=== PATIENT | female | born 1945 | race Caucasian/White ===

== ENCOUNTER 2018-03-28 19:27 | Inpatient (IN) | payer MEDICARE, BC ==
[2018-03-28] MEDS ORDERED: HYDROMORPHONE HCL INJ/PF 2 MG/ML AMPULE IV ONE ×2 (19:58→23:00)
--- NOTE | 2018-03-28 19:59 | ER Document Report ---
ED Fall - General Chief Complaint: Fall Stated Complaint: FALL/LEG PAIN Time Seen by Provider: 03/28/18 19:34 Mode of Arrival: Medic Information source: Patient, Relative Notes: Patient is a 72-year-old female with a history of GERD, hypothyroidism and high cholesterol who presents to the ER today after a fall leaving her rental home and walking down the steps. Patient states that it was slippery as it has been raining all day and she slipped, did a split and hit her right leg on a brick step. Patient comes in with pain to the right femur. No lacerations or open wounds. She did not hit her head or lose consciousness. She denies any pain anywhere else. She denies any numbness or tingling. TRAVEL OUTSIDE OF THE [place] IN LAST 30 DAYS: No - Related data Allergies/Adverse Reactions: No Known Allergies Allergy (Verified 03/29/18 09:28) Past Medical History - General Information source: Patient - Social History Smoking Status: Never Smoker Family History: Reviewed & Not Pertinent - Past Medical History Cardiac Medical History: Denies: Hx Coronary Artery Disease, Hx Heart Attack, Hx Hypertension Pulmonary Medical History: Denies: Hx Asthma, Hx Bronchitis, Hx COPD, Hx Pneumonia Neurological Medical History: Denies: Hx Cerebrovascular Accident, Hx Seizures Musculoskeltal Medical History: Reports Hx Arthritis - Hands Past Surgical History: Denies: Hx Hysterectomy - Immunizations Hx Diphtheria, Pertussis, Tetanus Vaccination: No Review of Systems - Review of Systems Constitutional: No symptoms reported EENT: No symptoms reported Cardiovascular: No symptoms reported Respiratory: No symptoms reported Gastrointestinal: No symptoms reported Genitourinary: No symptoms reported Female Genitourinary: No symptoms reported Musculoskeletal: See HPI Skin: No symptoms reported Hematologic/Lymphatic: No symptoms reported Neurological/Psychological: No symptoms reported Physical Exam - Vital signs Vitals: Pulse Ox 99 03/28/18 20:06 - Notes Notes: PHYSICAL EXAMINATION: GENERAL: Obviously in pain, not moving right leg, otherwise in no acute distress. HEAD: Atraumatic, normocephalic. EYES: Pupils equal round and reactive to light, extraocular movements intact, sclera anicteric, conjunctiva are normal. NECK: Normal range of motion, supple without lymphadenopathy LUNGS: CTAB and equal. No wheezes rales or rhonchi. HEART: Regular rate and rhythm without murmurs EXTREMITIES: Not wanting to move right leg, tender to distal femur, good pulses distally, normal sensation distally, no pitting edema. No cyanosis. NEUROLOGICAL: Cranial nerves grossly intact. Normal sensory/motor exams. PSYCH: Normal mood, normal affect. SKIN: Warm, Dry, normal turgor, no rashes or lesions noted Course - Re-evaluation Re-evalutation: 03/28/18 21:45 Patient has a comminuted fracture of the distal femur on x-ray. Hip and pelvis , right knee all normal. Dr. Zaman accepts admission at this time for comminuted distal femur fracture. Preop workup started, patient doing well with pain medication at this time. Vitals are all stable. 03/28/18 21:59 - Vital Signs Vital signs: Temp Pulse Resp BP Pulse Ox 97.8 F 63 18 127/57 H 96 03/29/18 19:44 03/29/18 19:44 03/29/18 19:44 03/29/18 19:44 03/29/18 19:44 - Laboratory Result Diagrams: 03/29/18 04:12 03/29/18 04:12 Laboratory results interpreted by me: 03/28/18 21:50 Urine Protein 30 H Urine Blood LARGE H Discharge - Discharge Clinical Impression: Femoral distal fracture Qualifiers: Encounter type: initial encounter Fracture type: closed Fracture morphology: unspecified fracture morphology Laterality: right Qualified Code(s): S72.401A - Unspecified fracture of lower end of right femur, initial encounter for closed fracture Condition: Stable Disposition: ADMITTED INPATIENT Admitting Provider: Junie Unit Admitted: Surgical Floor
[2018-03-28] MEDS ORDERED: ONDANSETRON HCL INJ/PF 4 MG/2 ML SDV IV ONE (20:13)
[2018-03-28] MEDS ORDERED: METOCLOPRAMIDE HCL INJ/PF 10 MG/2 ML SDV IV ONE (20:50)
[2018-03-28] MEDS ORDERED: NORMAL SALINE 1000 ML 1,000 ML IV PRN (21:06)
--- NOTE | 2018-03-28 21:18 | RADIOLOGY REPORT (SQ) ---
EXAM DESCRIPTION: FEMUR RIGHT COMPLETED DATE/TIME: 03/28/2018 8:53 pm REASON FOR STUDY: fall, pain COMPARISON: None. NUMBER OF VIEWS: Two views. TECHNIQUE: Two radiographic images acquired of the right femur to include hip and knee in at least o ne projection. LIMITATIONS: None. FINDINGS: MINERALIZATION: Normal. BONES: Comminuted fracture of the distal femoral diaphysis. No intra-articular extension. SOFT TISSUES: No obvious swelling or foreign body. OTHER: No other significant finding. IMPRESSION: Comminuted fracture of the distal femur. TECHNICAL DOCUMENTATION: JOB ID: [id number] [email or web address]- All Rights Reserved Reading location - IP/workstation name: [email or web address]
--- NOTE | 2018-03-28 21:18 | RADIOLOGY REPORT (SQ) ---
EXAM DESCRIPTION: HIP RIGHT AP/LATERAL COMPLETED DATE/TIME: 03/28/2018 8:53 pm REASON FOR STUDY: fall, pain COMPARISON: None. NUMBER OF VIEWS: Two views. TECHNIQUE: AP pelvis and additional frog-leg view of the right hip. LIMITATIONS: None. FINDINGS: MINERALIZATION: Normal. RIGHT HIP: No fracture or dislocation. No worrisome bone lesions. LEFT HIP: No fracture or dislocation. No worrisome bone lesions. PUBIS AND ISCHIUM: No fracture. PELVIS: No fracture. SACRUM: No fracture or dislocation. No worrisome bone lesions. LOWER LUMBAR SPINE: No fracture or dislocation. No worrisome bone lesions. No significant disc disea se. SOFT TISSUES: No findings. OTHER: No other significant finding. IMPRESSION: NEGATIVE STUDY OF THE RIGHT HIP. NO RADIOGRAPHIC EVIDENCE OF ACUTE INJURY. TECHNICAL DOCUMENTATION: JOB ID: [id number] [employer]- All Rights Reserved Reading location - IP/workstation name: [email or web address]
[2018-03-28] MEDS ORDERED: FENTANYL CITRATE INJ/PF 100 MCG/2 ML AMPUL IV ONE ×2 (21:19→23:00)
--- NOTE | 2018-03-28 21:19 | RADIOLOGY REPORT (SQ) ---
EXAM DESCRIPTION: KNEE RIGHT 2 VIEWS COMPLETED DATE/TIME: 03/28/2018 8:53 pm REASON FOR STUDY: fall, pain COMPARISON: None. NUMBER OF VIEWS: Two views. TECHNIQUE: AP and lateral radiographic images acquired of the right knee. LIMITATIONS: None. FINDINGS: MINERALIZATION: Normal. BONES: Comminuted fracture of the distal femur. No intra-articular extension. JOINT: No effusion. SOFT TISSUES: No soft tissue swelling. No radio-opaque foreign body. OTHER: No other significant finding. IMPRESSION: Comminuted fracture of the distal femur. TECHNICAL DOCUMENTATION: JOB ID: [id number] [employer]- All Rights Reserved Reading location - IP/workstation name: [email or web address]
--- NOTE | 2018-03-28 22:05 | RADIOLOGY REPORT (SQ) ---
EXAM DESCRIPTION: CHEST SINGLE VIEW COMPLETED DATE/TIME: 03/28/2018 9:31 pm REASON FOR STUDY: pre-op COMPARISON: None. EXAM PARAMETERS: NUMBER OF VIEWS: One view. TECHNIQUE: Single frontal radiographic view of the chest acquired. RADIATION DOSE: NA LIMITATIONS: None. FINDINGS: LUNGS AND PLEURA: No opacities, masses or pneumothorax. No pleural effusion. MEDIASTINUM AND HILAR STRUCTURES: No masses. Contour normal. HEART AND VASCULAR STRUCTURES: Heart normal in size. Normal vasculature. BONES: No acute findings. HARDWARE: None in the chest. OTHER: No other significant finding. IMPRESSION: NO ACUTE RADIOGRAPHIC FINDING IN THE CHEST. TECHNICAL DOCUMENTATION: JOB ID: [id number] [employer]- All Rights Reserved Reading location - IP/workstation name: [email or web address]
[2018-03-28 22:22] LABS: ABSOLUTE BASOPHILS # (AUTO) 0.1 10^3/uL (0.0-0.2); ABSOLUTE EOSINOPHILS # (AUTO) 0.1 10^3/uL (0.0-0.6); ABSOLUTE LYMPHOCYTES (AUTO) 1.4 10^3/uL (0.5-4.7); ABSOLUTE MONOCYTES (AUTO) 0.6 10^3/uL (0.1-1.4); ABSOLUTE NEUT (AUTO) 11.1 10^3/uL (1.7-8.2); BASOPHILS % (AUTO) 0.6 % (0-2); EOSINOPHILS % (AUTO) 0.5 % (0-6); HEMOGLOBIN 12.1 g/dL (12.0-15.5); LYMPHOCYTES % (AUTO) 10.7 % (13-45); MEAN CORPUSCULAR HEMOGLOBIN 29.5 pg (27.0-33.4); MEAN CORPUSCULAR HGB CONC 33.6 g/dL (32.0-36.0); MEAN CORPUSCULAR VOLUME 88 fl (80-97); MONOCYTES % (AUTO) 4.6 % (3-13); PLATELET COUNT 194 10^3/uL (150-450); RED CELL DISTRIBUTION WIDTH 13.5 % (11.5-14.0); SEGMENTED NEUTROPHILS % (AUTO) 83.6 % (42-78); TOTAL CELLS COUNTED % (AUTO) 100 %; WHITE BLOOD COUNT 13.3 10^3/uL (4.0-10.5)
[2018-03-28 22:27] LABS: AMORPHOUS SEDIMENT,URINE TRACE /HPF; APPEARANCE,URINE CLOUDY; BILIRUBIN,URINE NEGATIVE (NEGATIVE); COLOR,URINE YELLOW; GLUCOSE, URINE NEGATIVE (NEGATIVE); KETONES,URINE NEGATIVE (NEGATIVE); LEUKOCYTE ESTERASE,URINE NEGATIVE (NEGATIVE); NITRITE,URINE NEGATIVE (NEGATIVE); PROTEIN,URINE 30 mg/dL (NEGATIVE); URINE SPECIFIC GRAVITY 1.017; UROBILINOGEN,URINE NEGATIVE mg/dL (<2.0)
[2018-03-28 22:47] LABS: ALANINE AMINOTRANSFERASE 28 U/L (9-52); ALBUMIN 4.2 g/dL (3.5-5.0); ALKALINE PHOSPHATASE 51 U/L (38-126); ANION GAP 10 (5-19); ASPARTATE AMINO TRANSFERASE 24 U/L (14-36); BILIRUBIN,DIRECT 0.2 mg/dL (0.0-0.4); BILIRUBIN,TOTAL 0.3 mg/dL (0.2-1.3); BLOOD UREA NITROGEN 18 mg/dL (7-20); CALCIUM 9.9 mg/dL (8.4-10.2); CARBON DIOXIDE 28 mmol/L (22-30); CHLORIDE 102 mmol/L (98-107); GLUCOSE 159 mg/dL (75-110); POTASSIUM 3.7 mmol/L (3.6-5.0); SODIUM 140.1 mmol/L (137-145); TOTAL PROTEIN 6.8 g/dL (6.3-8.2)
--- NOTE | 2018-03-28 23:38 | EKG REPORT ---
SEVERITY:- NORMAL ECG - SINUS RHYTHM : Confirmed by: Gregory Rahman 28-Mar-2018 23:37:34
[2018-03-29] MEDS ORDERED: OXYCODONE-ACETAMINOPHEN 5-325 MG TABLET PO PRN ×3 (00:41→17:18)
[2018-03-29] MEDS ORDERED: RINGERS SOLUTION,LACTATED 1,000 ML IV PRN ×2 (00:42→18:56)
[2018-03-29] MEDS ORDERED: MORPHINE SULFATE 10 MG/ML INJ IV PRN ×2 (01:45→17:18)
[2018-03-29] MEDS: OXYCODONE-ACETAMINOPHEN 5-325 MG TABLET PO PRN ×3 (02:00→12:38)
[2018-03-29] MEDS ORDERED: VITAMIN D PO SCH (02:00)
[2018-03-29 05:14] LABS: ABSOLUTE LYMPHOCYTES (AUTO) 0.5 10^3/uL (0.5-4.7); ABSOLUTE MONOCYTES (AUTO) 0.5 10^3/uL (0.1-1.4); ABSOLUTE NEUT (AUTO) 8.8 10^3/uL (1.7-8.2); BASOPHILS % (AUTO) 0.5 % (0-2); HEMATOCRIT 34.6 % (36.0-47.0); HEMOGLOBIN 11.8 g/dL (12.0-15.5); LYMPHOCYTES % (AUTO) 5.4 % (13-45); MEAN CORPUSCULAR HEMOGLOBIN 29.6 pg (27.0-33.4); MEAN CORPUSCULAR HGB CONC 34.1 g/dL (32.0-36.0); MEAN CORPUSCULAR VOLUME 87 fl (80-97); MONOCYTES % (AUTO) 4.8 % (3-13); RED BLOOD COUNT 3.98 10^6/uL (3.72-5.28); RED CELL DISTRIBUTION WIDTH 13.4 % (11.5-14.0); SEGMENTED NEUTROPHILS % (AUTO) 89.3 % (42-78); TOTAL CELLS COUNTED % (AUTO) 100 %; WHITE BLOOD COUNT 9.9 10^3/uL (4.0-10.5)
[2018-03-29 05:22] LABS: ANION GAP 10 (5-19); BLOOD UREA NITROGEN 20 mg/dL (7-20); CALCIUM 9.4 mg/dL (8.4-10.2); CARBON DIOXIDE 27 mmol/L (22-30); CHLORIDE 103 mmol/L (98-107); GLUCOSE 144 mg/dL (75-110); INTERNATIONAL RATION (INR) 0.89; POTASSIUM 4.3 mmol/L (3.6-5.0); PROTHROMBIN TIME 12.5 SEC (11.4-15.4)
[2018-03-29 05:42] LABS: PLATELET COUNT 133 10^3/uL (150-450)
[2018-03-29] MEDS: MULTIVITAMIN TABLET PO SCH (08:55)
[2018-03-29] MEDS: LANSOPRAZOLE 30 MG TAB.RAP.DR PO SCH (08:55)
[2018-03-29] MEDS ORDERED: LEVOTHYROXINE SODIUM 0.088 MG TABLET PO SCH (10:00)
--- NOTE | 2018-03-29 10:18 | EKG REPORT ---
SEVERITY:- NORMAL ECG - SINUS RHYTHM : Confirmed by: Gregory Rahman 29-Mar-2018 10:18:07
[2018-03-29] MEDS ORDERED: LEVOTHYROXINE SODIUM 0.075 MG TABLET PO ONE (12:00)
--- NOTE | 2018-03-29 13:02 | PDOC H&P ---
History of Present Illness Admission Date/PCP: 03/28/18 21:51 GITA BHATT MD Patient complains of: Right leg pain and deformity History of Present Illness: JEANNINE ROSADO is a 72 year old female known to our service for previous orthopedic complaints. Yesterday patient was [facility] home when she tripped and fell and twisted and injured her right lower extremity. Medially had deformity pain and swelling and inability to weight-bear. Patient was brought to the [facility] ER where upon evaluation was shown to have a distal third displaced femoral shaft fracture. Denies any numbness or tingling or paresthesias. Denies any loss of consciousness denies any other extremity injury. Complains of sharp acute pain right above her right knee. Past Medical History Cardiac Medical History: Denies: Coronary Artery Disease, Myocardial Infarction, Hypertension Pulmonary Medical History: Denies: Asthma, Bronchitis, Chronic Obstructive Pulmonary Disease (COPD), Pneumonia Neurological Medical History: Denies: Seizures Musculoskeltal Medical History: Reports: Arthritis - Hands Hematology: Reports: Anemia - Mild Past Surgical History Past Surgical History: Denies: Hysterectomy Social History Smoking Status: Never Smoker Family History Parental Family History Reviewed: No Children Family History Reviewed: No Sibling(s) Family History Reviewed.: No Medication/Allergy Home Medications: Rosuvastatin Calcium [Crestor 10 mg Tablet] 10 mg PO QPM 12/30/14 Cetirizine HCl [Zyrtec 10 mg Tablet] 10 mg PO DAILYP PRN 03/29/18 Ergocalciferol (Vitamin D2) [Vitamin D2] 50,000 unit PO Q14D 03/29/18 Levothyroxine Sodium [Synthroid 0.075 mg Tablet] 0.075 mg PO QAM 03/29/18 Allergies/Adverse Reactions: No Known Allergies Allergy (Verified 03/29/18 09:28) Review of Systems Constitutional: ABSENT: headache(s), weight gain, weight loss Eyes: ABSENT: visual disturbances Ears: ABSENT: hearing changes Nose, Mouth, and Throat: ABSENT: sore throat, vertigo Cardiovascular: ABSENT: chest pain, dyspnea on exertion, orthropnea, palpitations Respiratory: ABSENT: dyspnea, hemoptysis Gastrointestinal: ABSENT: hematemesis, hematochezia, nausea, vomiting Genitourinary: ABSENT: dysuria, hematuria Musculoskeletal: PRESENT: as per HPI Neurological: ABSENT: numbness, paresthesias, syncope, vertigo Psychiatric: ABSENT: hallucinations, homidical ideation, suicidal ideation Hematologic/Lymphatic: ABSENT: lymphadenopathy Physical Exam Vital Signs: Temp Pulse Resp BP Pulse Ox 36.8 C 74 18 113/48 L 95 03/29/18 11:45 03/29/18 11:45 03/29/18 11:45 03/29/18 11:45 03/29/18 11:45 Intake & Output 03/28/18 03/29/18 03/30/18 06:59 06:59 06:59 Intake Total 0 Output Total 100 Balance -100 Weight 68.8 kg General appearance: PRESENT: no acute distress, cooperative Head exam: PRESENT: atraumatic, normocephalic Eye exam: PRESENT: EOMI, PERRLA. ABSENT: nystagmus, periorbital swelling Neck exam: ABSENT: lymphadenopathy, thyromegaly Respiratory exam: PRESENT: symmetrical, unlabored. ABSENT: accessory muscle use , tachypnea Cardiovascular exam: PRESENT: RRR Pulses: PRESENT: +2 pedal pulses bilateral Vascular exam: PRESENT: normal capillary refill GI/Abdominal exam: PRESENT: soft. ABSENT: distended, guarding, organolmegaly, tenderness Musculoskeletal exam: PRESENT: deformity - Right lower extremity shortening and externally rotated. Neurological exam: PRESENT: alert, awake, oriented to person, oriented to place , oriented to time, oriented to situation Focused psych exam: ABSENT: delusional, flight of ideas Skin exam: PRESENT: intact. ABSENT: erythema, rash, skin tears Adult Front & Back Image: 1 - Short and externally rotated. Splint intact. 5 out of 5 muscle distally with intact sensation to light touch. Tender palpation above the knee with some crepitus. Intact skin with no culture abrasions. Results Laboratory Results: 03/29/18 04:12 03/29/18 04:12 03/28/18 03/28/18 03/29/18 22:05 22:05 04:12 WBC 13.3 H 9.9 RBC 4.10 3.98 Hgb 12.1 11.8 L Hct 36.0 34.6 L MCV 88 87 MCH 29.5 29.6 MCHC 33.6 34.1 RDW 13.5 13.4 Plt Count 194 133 L Seg Neutrophils % 83.6 H 89.3 H Lymphocytes % 10.7 L 5.4 L Monocytes % 4.6 4.8 Eosinophils % 0.5 0.0 Basophils % 0.6 0.5 Absolute Neutrophils 11.1 H 8.8 H Absolute Lymphocytes 1.4 0.5 Absolute Monocytes 0.6 0.5 Absolute Eosinophils 0.1 0.0 Absolute Basophils 0.1 0.0 Sodium 140.1 Potassium 3.7 Chloride 102 Carbon Dioxide 28 Anion Gap 10 BUN 18 Creatinine 0.70 Est GFR ( Amer) > 60 Est GFR (Non-Af Amer) > 60 Glucose 159 H Calcium 9.9 Total Bilirubin 0.3 AST 24 ALT 28 Alkaline Phosphatase 51 Total Protein 6.8 Albumin 4.2 03/29/18 04:12 WBC RBC Hgb Hct MCV MCH MCHC RDW Plt Count Seg Neutrophils % Lymphocytes % Monocytes % Eosinophils % Basophils % Absolute Neutrophils Absolute Lymphocytes Absolute Monocytes Absolute Eosinophils Absolute Basophils Sodium 140.0 Potassium 4.3 Chloride 103 Carbon Dioxide 27 Anion Gap 10 BUN 20 Creatinine 0.57 Est GFR ( Amer) > 60 Est GFR (Non-Af Amer) > 60 Glucose 144 H Calcium 9.4 Total Bilirubin AST ALT Alkaline Phosphatase Total Protein Albumin Impressions: Femur X-Ray 03/28/18 19:41 IMPRESSION: Comminuted fracture of the distal femur. Hip/Pelvis X-Ray 03/28/18 19:41 IMPRESSION: NEGATIVE STUDY OF THE RIGHT HIP. NO RADIOGRAPHIC EVIDENCE OF ACUTE INJURY. Knee X-Ray 03/28/18 19:41 IMPRESSION: Comminuted fracture of the distal femur. Chest X-Ray 03/28/18 21:04 IMPRESSION: NO ACUTE RADIOGRAPHIC FINDING IN THE CHEST. Status: Image reviewed by me Assessment & Plan - Diagnosis (1) Femoral distal fracture Qualifiers: Encounter type: initial encounter Fracture type: closed Fracture morphology: unspecified fracture morphology Laterality: right Qualified Code (s): S72.401A - Unspecified fracture of lower end of right femur, initial encounter for closed fracture Is this a current diagnosis for this admission?: Yes Plan: 72-year-old female with displaced distal third femoral shaft fracture. Patient splinted and admitted for surgical intervention. Mcclendon was placed and patient was placed n.p.o. after midnight except for medications. Abs ordered and plan to proceed with retrograde nailing of her right femoral shaft fracture.
[2018-03-29] MEDS ORDERED: FENTANYL CITRATE INJ/PF 100 MCG/2 ML AMPUL ONE ×2 (15:39)
[2018-03-29] MEDS ORDERED: PROPOFOL INJ 200 MG/20 ML VIAL IV ONE (15:39)
[2018-03-29] MEDS ORDERED: MIDAZOLAM 2 MG/2 ML INJ ONE ×2 (15:39→19:28)
[2018-03-29] MEDS ORDERED: TETRACAINE HCL/PF 20MG/2ML AMPULE (SPINAL) ONE (15:40)
[2018-03-29] MEDS ORDERED: CEFAZOLIN INJ 1 GM VIAL ONE (16:49)
[2018-03-29] MEDS: ATORVASTATIN CALCIUM 20 MG TABLET PO SCH (17:05)
[2018-03-29] MEDS ORDERED: MEPERIDINE HCL/PF INJ 25 MG/1 ML DISP.SYRIN IV PRN (17:18)
[2018-03-29] MEDS ORDERED: DIPHENHYDRAMINE HCL 50 MG/ML VIAL IV PRN ×2 (17:18→19:08)
[2018-03-29] MEDS ORDERED: PROMETHAZINE HCL INJ 25 MG/1 ML VIAL IV PRN ×2 (17:18)
[2018-03-29] MEDS ORDERED: FENTANYL CITRATE INJ/PF 100 MCG/2 ML AMPUL IV PRN ×3 (17:18)
[2018-03-29] MEDS ORDERED: ACETAMINOPHEN 1,000 MG/100 ML RTUPB IV ONE (19:05)
[2018-03-29] MEDS ORDERED: ONDANSETRON HCL INJ/PF 4 MG/2 ML SDV IV PRN (19:06)
[2018-03-29] MEDS ORDERED: MAG HYDROX/AL HYDROX/SIMETH SUSP 30 ML UDCUP PO PRN (19:06)
[2018-03-29] MEDS ORDERED: CETIRIZINE 10 MG TABLET PO PRN (19:07)
[2018-03-29] MEDS ORDERED: ONDANSETRON 4 MG TAB.RAPDIS PO PRN (19:08)
--- NOTE | 2018-03-29 19:11 | RADIOLOGY REPORT (SQ) ---
EXAM DESCRIPTION: NO CHG FLUORO; FEMUR RIGHT COMPLETED DATE/TIME: 03/29/2018 7:00 pm REASON FOR STUDY: RIGHT FEMUR ORIF COMPARISON: 03/28/2018 FLUOROSCOPY TIME: 1.8 minutes 7 Images saved to PACS LIMITATIONS: None. PROCEDURE: ORIF distal right femoral fracture. FINDINGS: Images obtained from fluoro document placement of a medullary olamide in the femur with 1 scre w proximally and 2 screws distally. IMPRESSION: ORIF right femoral fracture. Refer to operative note for further information. COMMENT: PQRS 6045F: Fluoroscopy time of the procedure is documented in the report. TECHNICAL DOCUMENTATION: JOB ID: [id number] [employer]- All Rights Reserved Reading location - IP/workstation name: [email or web address]
--- NOTE | 2018-03-29 19:11 | RADIOLOGY REPORT (SQ) ---
EXAM DESCRIPTION: NO CHG FLUORO; FEMUR RIGHT COMPLETED DATE/TIME: 03/29/2018 7:00 pm REASON FOR STUDY: RIGHT FEMUR ORIF COMPARISON: 03/28/2018 FLUOROSCOPY TIME: 1.8 minutes 7 Images saved to PACS LIMITATIONS: None. PROCEDURE: ORIF distal right femoral fracture. FINDINGS: Images obtained from fluoro document placement of a medullary olamide in the femur with 1 scre w proximally and 2 screws distally. IMPRESSION: ORIF right femoral fracture. Refer to operative note for further information. COMMENT: PQRS 6045F: Fluoroscopy time of the procedure is documented in the report. TECHNICAL DOCUMENTATION: JOB ID: [id number] [employer]- All Rights Reserved Reading location - IP/workstation name: [email or web address]
[2018-03-29] MEDS: ONDANSETRON HCL INJ/PF 4 MG/2 ML SDV IV PRN (20:20)
[2018-03-29] MEDS: OXYCODONE HCL SR 10 MG TABLET PO SCH (21:04)
[2018-03-30] MEDS ORDERED: CEFAZOLIN 2 GM/D5W RTU 50 ML IV SCH
[2018-03-30] MEDS: CEFAZOLIN SODIUM 2 GM in DEXTROSE 5%-WATER 100 ML IV SCH ×4 (00:20→18:32)
[2018-03-30] MEDS ORDERED: ACETAMINOPHEN 1,000 MG/100 ML RTUPB IV ONE ×2 (00:38→01:08)
[2018-03-30 05:04] LABS: HEMATOCRIT 28.1 % (36.0-47.0); MEAN CORPUSCULAR VOLUME 88 fl (80-97); PLATELET COUNT 121 10^3/uL (150-450); RED BLOOD COUNT 3.19 10^6/uL (3.72-5.28); RED CELL DISTRIBUTION WIDTH 13.2 % (11.5-14.0); WHITE BLOOD COUNT 5.9 10^3/uL (4.0-10.5)
[2018-03-30 05:17] LABS: ANION GAP 7 (5-19); BLOOD UREA NITROGEN 12 mg/dL (7-20); CALCIUM 8.2 mg/dL (8.4-10.2); CARBON DIOXIDE 24 mmol/L (22-30); CHLORIDE 106 mmol/L (98-107); GLUCOSE 104 mg/dL (75-110); POTASSIUM 4.2 mmol/L (3.6-5.0); SODIUM 136.8 mmol/L (137-145)
[2018-03-30 05:30] LABS: HEMOGLOBIN 9.5 g/dL (12.0-15.5)
[2018-03-30] MEDS: LEVOTHYROXINE SODIUM 0.075 MG TABLET PO SCH (06:05)
[2018-03-30] MEDS: OXYCODONE HCL IR 5 MG TABLET PO PRN ×3 (08:36→18:41)
[2018-03-30] MEDS: MAG HYDROX/AL HYDROX/SIMETH SUSP 30 ML UDCUP PO PRN (08:57)
[2018-03-30] MEDS: SENNOSIDES/DOCUSATE 8.6-50 MG 1 EACH TABLET PO SCH ×2 (10:39→18:32)
[2018-03-30] MEDS: LANSOPRAZOLE 30 MG TAB.RAP.DR PO SCH (10:39)
[2018-03-30] MEDS: OXYCODONE HCL SR 10 MG TABLET PO SCH ×2 (10:40→21:45)
[2018-03-30] MEDS: PREGABALIN 75 MG CAPSULE PO SCH ×2 (10:41→18:31)
[2018-03-30] MEDS: PRENATAL VITAMIN W DHA CAPSULE PO SCH (10:41)
[2018-03-30] MEDS: MULTIVITAMIN TABLET PO SCH (10:42)
[2018-03-30] MEDS ORDERED: ONDANSETRON 4 MG TAB.RAPDIS PO PRN (14:30)
[2018-03-30] MEDS: ATORVASTATIN CALCIUM 20 MG TABLET PO SCH (18:31)
[2018-03-31] MEDS: LEVOTHYROXINE SODIUM 0.075 MG TABLET PO SCH (05:26)
[2018-03-31] MEDS: LANSOPRAZOLE 30 MG TAB.RAP.DR PO SCH (05:26)
[2018-03-31 05:40] LABS: HEMATOCRIT 29.5 % (36.0-47.0); HEMOGLOBIN 10.2 g/dL (12.0-15.5); MEAN CORPUSCULAR HEMOGLOBIN 30.3 pg (27.0-33.4); MEAN CORPUSCULAR HGB CONC 34.4 g/dL (32.0-36.0); MEAN CORPUSCULAR VOLUME 88 fl (80-97); PLATELET COUNT 130 10^3/uL (150-450); RED BLOOD COUNT 3.36 10^6/uL (3.72-5.28); RED CELL DISTRIBUTION WIDTH 13.3 % (11.5-14.0); WHITE BLOOD COUNT 7.5 10^3/uL (4.0-10.5)
--- NOTE | 2018-03-31 07:45 | PDOC PROGRESS REPORT ---
Subjective Progress Note for:: 03/30/18 Subjective:: Patient complaining of some pain. No issues overnight. Reason For Visit: STATUS POST RETROGRADE NAILING OF RIGHT FEMUR FX Physical Exam Vital Signs: Temp Pulse Resp BP Pulse Ox 36.5 C 66 16 130/52 H 97 03/30/18 11:03 03/30/18 11:03 03/30/18 11:03 03/30/18 11:03 03/30/18 11:03 Intake & Output 03/29/18 03/30/18 03/31/18 06:59 06:59 06:59 Intake Total 0 5850 829 Output Total 100 2050 400 Balance -100 3800 429 Weight 68.8 kg 68.6 kg General appearance: PRESENT: no acute distress Adult Front & Back Image: 1 - Dressing is dry clean and intact. Patient is neurovascular intact distally with good sensation to light touch and flexion extension of her toes and ankle. Capillary refill Results Laboratory Results: 03/30/18 03:56 03/30/18 03:56 03/30/18 03/30/18 03:56 03:56 WBC 5.9 RBC 3.19 L Hgb 9.5 L D Hct 28.1 L MCV 88 MCH 30.0 MCHC 34.0 RDW 13.2 Plt Count 121 L Sodium 136.8 L Potassium 4.2 Chloride 106 Carbon Dioxide 24 Anion Gap 7 BUN 12 Creatinine 0.58 Est GFR ( Amer) > 60 Est GFR (Non-Af Amer) > 60 Glucose 104 Calcium 8.2 L Impressions: Hip/Pelvis X-Ray 03/28/18 19:41 IMPRESSION: NEGATIVE STUDY OF THE RIGHT HIP. NO RADIOGRAPHIC EVIDENCE OF ACUTE INJURY. Knee X-Ray 03/28/18 19:41 IMPRESSION: Comminuted fracture of the distal femur. Chest X-Ray 03/28/18 21:04 IMPRESSION: NO ACUTE RADIOGRAPHIC FINDING IN THE CHEST. Femur X-Ray 03/29/18 00:00 IMPRESSION: ORIF right femoral fracture. Refer to operative note for further information. Fluoroscopy 03/29/18 00:00 IMPRESSION: ORIF right femoral fracture. Refer to operative note for further information. Status: Image reviewed by me Assessment & Plan - Diagnosis (1) Femoral distal fracture Qualifiers: Encounter type: initial encounter Fracture type: closed Fracture morphology: unspecified fracture morphology Laterality: right Qualified Code (s): S72.401A - Unspecified fracture of lower end of right femur, initial encounter for closed fracture Is this a current diagnosis for this admission?: Yes - Plan Summary Plan Summary: 72-year-old female postop day 1 from retrograde nailing of her left distal third femoral shaft fracture. Toe-touch weightbearing and participate with physical therapy. Continue pain control and DVT prophylaxis. We will continue to monitor her H&H
--- NOTE | 2018-03-31 07:50 | Operative Report ---
Operative Report DATE OF SURGERY: 03/29/18 PREOPERATIVE DIAGNOSIS: Right distal third femoral shaft fracture POSTOPERATIVE DIAGNOSIS: Same OPERATION: Retrograde nailing of the right femur fracture SURGEON: LOI GERARD ANESTHESIA: Spinal TISSUE REMOVED OR ALTERED: None COMPLICATIONS: None ESTIMATED BLOOD LOSS: 50 mL INTRAOPERATIVE FINDINGS: As above PROCEDURE: After receiving her preoperative antibiotics patient went to the operating room where she received a spinal successfully. Patient was then given some sedation and on supine position the right lower extremity was prepped and draped in a normal sterile surgical fashion. Timeout was done identifying the right and femur is a correct site. [place] was applied under the knee and a midline incision was done from the inferior pole of the patella to the tibial plateau and then a split longitudinal of the patella tendon was done. Excision of the fat pad was done and this quickly expose the femoral trochlear cartilage. Under C-arm I was able then to guide the initial guidepin right through the notch and to the midline portion of the distal fragment. C-arm pictures of AP and lateral used to allow position. Entry reamer was done and then a guidewire was passed from the distal fragment into the proximal fragment and confirmed under C-arm as well. While holding reduction over then to ream all way up to 11.5 mm reamer. We measured 340 mm in length so we placed a 10 x 340 mm retrograde nail. We proceeded to secure the distal fragment first doing the lateral screw and oblique screws. This was done under C-arm and measured with a depth gauge. Appropriate screws were placed and then placed traction and reduction and then proceeded to then do our most proximal screw. Once were satisfied with our fixation final pictures were taken and then bulb irrigation was used to clean the incisions. The proximal incision had been done for the proximal screw was closed with 0 Vicryl and 2-0 Vicryl and then rj for skin. The incision over the lateral aspect for the 2 screws was closed with 2- 0 Vicryl and rj. Incision over the patellar tendon was first addressing the patellar incision was approximated with 0 Vicryl. The peritenon was closed with 2-0 Vicryl in the dermis with 2-0 Vicryl and then rj for skin. Xeroform 4 x 4 dressing was applied followed by soft roll and then overwrapped with an Ramu bandage. Drapes were removed and the patient was successfully transferred to PACU in a stable condition.
--- NOTE | 2018-03-31 07:57 | PDOC PROGRESS REPORT ---
Subjective Progress Note for:: 03/31/18 Subjective:: Patient actually worked with physical therapy and it was able to stand up. Still has difficulty ambulating. No issues overnight. Reason For Visit: STATUS POST RETROGRADE NAILING OF RIGHT FEMUR FX Physical Exam Vital Signs: Temp Pulse Resp BP Pulse Ox 37.1 C 74 17 128/56 H 98 03/30/18 19:50 03/30/18 19:50 03/30/18 19:50 03/30/18 19:50 03/30/18 19:50 Intake & Output 03/30/18 03/31/18 04/01/18 06:59 06:59 06:59 Intake Total 5850 1448 Output Total 2050 400 Balance 3800 1048 Weight 68.6 kg 68.5 kg General appearance: PRESENT: no acute distress Neurological exam: PRESENT: alert, awake, oriented to person, oriented to place , oriented to time, oriented to situation Adult Front & Back Image: 1 - Dressing is dry clean and intact. Neurovascularly intact distally with good capillary refill and flexion extension of her ankle and toes with no deficit. Sensation to light touch. Results Laboratory Results: 03/31/18 04:59 03/30/18 03:56 03/31/18 04:59 WBC 7.5 RBC 3.36 L Hgb 10.2 L Hct 29.5 L MCV 88 MCH 30.3 MCHC 34.4 RDW 13.3 Plt Count 130 L Impressions: Hip/Pelvis X-Ray 03/28/18 19:41 IMPRESSION: NEGATIVE STUDY OF THE RIGHT HIP. NO RADIOGRAPHIC EVIDENCE OF ACUTE INJURY. Knee X-Ray 03/28/18 19:41 IMPRESSION: Comminuted fracture of the distal femur. Chest X-Ray 03/28/18 21:04 IMPRESSION: NO ACUTE RADIOGRAPHIC FINDING IN THE CHEST. Femur X-Ray 03/29/18 00:00 IMPRESSION: ORIF right femoral fracture. Refer to operative note for further information. Fluoroscopy 03/29/18 00:00 IMPRESSION: ORIF right femoral fracture. Refer to operative note for further information. Assessment & Plan - Diagnosis (1) Femoral distal fracture Qualifiers: Encounter type: initial encounter Fracture type: closed Fracture morphology: unspecified fracture morphology Laterality: right Qualified Code (s): S72.401A - Unspecified fracture of lower end of right femur, initial encounter for closed fracture Is this a current diagnosis for this admission?: Yes - Plan Summary Plan Summary: 72-year-old female postop day 2 from retrograde nailing of her right femoral shaft fracture. Continue working with therapy. They recommended [facility] facility therefore patient will stay over the weekend and likely be transferred on Tuesday or Tuesday. Dressing change on Tuesday. Continue pain control and Xarelto. We will monitor H&H.
[2018-03-31] MEDS: MAG HYDROX/AL HYDROX/SIMETH SUSP 30 ML UDCUP PO PRN (08:14)
[2018-03-31] MEDS: ONDANSETRON HCL INJ/PF 4 MG/2 ML SDV IV PRN ×2 (08:38→19:44)
[2018-03-31] MEDS: PREGABALIN 75 MG CAPSULE PO SCH ×2 (09:12→17:50)
[2018-03-31] MEDS: PRENATAL VITAMIN W DHA CAPSULE PO SCH (09:12)
[2018-03-31] MEDS: OXYCODONE HCL SR 10 MG TABLET PO SCH (09:12)
[2018-03-31] MEDS: SENNOSIDES/DOCUSATE 8.6-50 MG 1 EACH TABLET PO SCH ×2 (09:13→17:48)
[2018-03-31] MEDS: MULTIVITAMIN TABLET PO SCH (09:14)
[2018-03-31] MEDS: ATORVASTATIN CALCIUM 20 MG TABLET PO SCH (17:48)
[2018-03-31] MEDS: OXYCODONE HCL IR 5 MG TABLET PO PRN (17:49)
[2018-04-01] MEDS: LEVOTHYROXINE SODIUM 0.075 MG TABLET PO SCH (06:00)
[2018-04-01] MEDS: LANSOPRAZOLE 30 MG TAB.RAP.DR PO SCH (06:07)
[2018-04-01] MEDS: OXYCODONE HCL IR 5 MG TABLET PO PRN ×2 (06:08→10:07)
[2018-04-01 07:03] LABS: HEMATOCRIT 27.8 % (36.0-47.0); HEMOGLOBIN 9.6 g/dL (12.0-15.5); MEAN CORPUSCULAR HEMOGLOBIN 30.4 pg (27.0-33.4); MEAN CORPUSCULAR HGB CONC 34.6 g/dL (32.0-36.0); MEAN CORPUSCULAR VOLUME 88 fl (80-97); PLATELET COUNT 130 10^3/uL (150-450); RED BLOOD COUNT 3.17 10^6/uL (3.72-5.28); WHITE BLOOD COUNT 6.3 10^3/uL (4.0-10.5)
--- NOTE | 2018-04-01 08:16 | PDOC PROGRESS REPORT ---
Subjective Progress Note for:: 04/01/18 Reason For Visit: STATUS POST RETROGRADE NAILING OF RIGHT FEMUR FX 72-year-old white female status post retrograde nailing of a right distal femur fracture. Patient with minimal complaints this morning. Accompanied by her sister. Physical Exam Vital Signs: Temp Pulse Resp BP Pulse Ox 36.9 C 78 16 108/47 L 92 04/01/18 07:54 04/01/18 07:54 04/01/18 07:54 04/01/18 07:54 04/01/18 07:54 Intake & Output 03/31/18 04/01/18 04/02/18 06:59 06:59 06:59 Intake Total 1448 1250 Output Total 400 400 Balance 1048 850 Weight 68.5 kg 68.8 kg General appearance: PRESENT: no acute distress Respiratory exam: PRESENT: unlabored Cardiovascular exam: PRESENT: RRR Pulses: PRESENT: +1 pedal pulses bilateral Vascular exam: PRESENT: normal capillary refill GI/Abdominal exam: PRESENT: soft Rectal exam: PRESENT: deferred Extremities exam: PRESENT: other - Right lower extremity dressing clean dry and tract. Neurological exam: PRESENT: alert, awake, oriented to person, oriented to place , oriented to time, oriented to situation. ABSENT: motor sensory deficit Skin exam: PRESENT: dry, intact, warm. ABSENT: cyanosis, rash Results Laboratory Results: 04/01/18 05:17 03/30/18 03:56 04/01/18 05:17 WBC 6.3 RBC 3.17 L Hgb 9.6 L Hct 27.8 L MCV 88 MCH 30.4 MCHC 34.6 RDW 13.0 Plt Count 130 L Impressions: Hip/Pelvis X-Ray 03/28/18 19:41 IMPRESSION: NEGATIVE STUDY OF THE RIGHT HIP. NO RADIOGRAPHIC EVIDENCE OF ACUTE INJURY. Knee X-Ray 03/28/18 19:41 IMPRESSION: Comminuted fracture of the distal femur. Chest X-Ray 03/28/18 21:04 IMPRESSION: NO ACUTE RADIOGRAPHIC FINDING IN THE CHEST. Femur X-Ray 03/29/18 00:00 IMPRESSION: ORIF right femoral fracture. Refer to operative note for further information. Fluoroscopy 03/29/18 00:00 IMPRESSION: ORIF right femoral fracture. Refer to operative note for further information. Status: Imported from PACS Assessment & Plan - Diagnosis (1) Femoral distal fracture Qualifiers: Encounter type: initial encounter Fracture type: closed Fracture morphology: unspecified fracture morphology Laterality: right Qualified Code (s): S72.401A - Unspecified fracture of lower end of right femur, initial encounter for closed fracture Is this a current diagnosis for this admission?: Yes Plan: Patient to be mobilized with physical therapy
[2018-04-01] MEDS: MULTIVITAMIN TABLET PO SCH (08:31)
[2018-04-01] MEDS: PREGABALIN 75 MG CAPSULE PO SCH ×2 (08:32→16:33)
[2018-04-01] MEDS: SENNOSIDES/DOCUSATE 8.6-50 MG 1 EACH TABLET PO SCH ×2 (08:32→16:32)
[2018-04-01] MEDS: PRENATAL VITAMIN W DHA CAPSULE PO SCH (08:32)
[2018-04-01] MEDS: ATORVASTATIN CALCIUM 20 MG TABLET PO SCH (16:32)
[2018-04-02] MEDS: LEVOTHYROXINE SODIUM 0.075 MG TABLET PO SCH (06:03)
[2018-04-02] MEDS: LANSOPRAZOLE 30 MG TAB.RAP.DR PO SCH (06:04)
--- NOTE | 2018-04-02 07:35 | PDOC PROGRESS REPORT ---
Subjective Progress Note for:: 04/02/18 Reason For Visit: STATUS POST RETROGRADE NAILING OF RIGHT FEMUR FX 72-year-old white female status post ORIF of a right distal femur fracture. Patient had a good day yesterday. Physical Exam Vital Signs: Temp Pulse Resp BP Pulse Ox 37.0 C 76 14 112/49 L 96 04/01/18 23:18 04/01/18 23:18 04/01/18 23:18 04/01/18 23:18 04/01/18 23:18 Intake & Output 04/01/18 04/02/18 04/03/18 06:59 06:59 06:59 Intake Total 1250 701 Output Total 400 1100 Balance 850 -399 Weight 68.8 kg 70 kg General appearance: PRESENT: no acute distress Head exam: PRESENT: normocephalic Respiratory exam: PRESENT: unlabored Cardiovascular exam: PRESENT: RRR Pulses: PRESENT: +1 pedal pulses bilateral Vascular exam: PRESENT: normal capillary refill Extremities exam: PRESENT: other - Right lower dressing intact. Neurological exam: PRESENT: alert, awake, oriented to person, oriented to place , oriented to time, oriented to situation, CN II-XII grossly intact. ABSENT: motor sensory deficit Psychiatric exam: PRESENT: appropriate affect, normal mood. ABSENT: homicidal ideation, suicidal ideation Skin exam: PRESENT: dry, intact, warm. ABSENT: cyanosis, rash Results Laboratory Results: 04/01/18 05:17 03/30/18 03:56 Impressions: Hip/Pelvis X-Ray 03/28/18 19:41 IMPRESSION: NEGATIVE STUDY OF THE RIGHT HIP. NO RADIOGRAPHIC EVIDENCE OF ACUTE INJURY. Knee X-Ray 03/28/18 19:41 IMPRESSION: Comminuted fracture of the distal femur. Chest X-Ray 03/28/18 21:04 IMPRESSION: NO ACUTE RADIOGRAPHIC FINDING IN THE CHEST. Femur X-Ray 03/29/18 00:00 IMPRESSION: ORIF right femoral fracture. Refer to operative note for further information. Fluoroscopy 03/29/18 00:00 IMPRESSION: ORIF right femoral fracture. Refer to operative note for further information. Status: Imported from PACS Assessment & Plan - Diagnosis (1) Femoral distal fracture Qualifiers: Encounter type: initial encounter Fracture type: closed Fracture morphology: unspecified fracture morphology Laterality: right Qualified Code (s): S72.401A - Unspecified fracture of lower end of right femur, initial encounter for closed fracture Is this a current diagnosis for this admission?: Yes Plan: Doing well postop. Anticipate discharge to intermediate facility tomorrow. - Time Time Spent with patient: 15-24 minutes Anticipated discharge: SNF Within: within 24 hours
[2018-04-02] MEDS: OXYCODONE HCL IR 5 MG TABLET PO PRN ×3 (08:43→19:47)
[2018-04-02] MEDS: MULTIVITAMIN TABLET PO SCH (09:42)
[2018-04-02] MEDS: SENNOSIDES/DOCUSATE 8.6-50 MG 1 EACH TABLET PO SCH ×2 (09:42→18:47)
[2018-04-02] MEDS: PREGABALIN 75 MG CAPSULE PO SCH ×2 (09:42→18:46)
[2018-04-02] MEDS: PRENATAL VITAMIN W DHA CAPSULE PO SCH (09:42)
[2018-04-02] MEDS: ATORVASTATIN CALCIUM 20 MG TABLET PO SCH (18:46)
[2018-04-03] MEDS: LANSOPRAZOLE 30 MG TAB.RAP.DR PO SCH (05:51)
[2018-04-03] MEDS: LEVOTHYROXINE SODIUM 0.075 MG TABLET PO SCH (05:51)
[2018-04-03] MEDS: OXYCODONE HCL IR 5 MG TABLET PO PRN ×3 (08:11→14:54)
[2018-04-03] MEDS: MULTIVITAMIN TABLET PO SCH (11:00)
[2018-04-03] MEDS: PREGABALIN 75 MG CAPSULE PO SCH (11:00)
[2018-04-03] MEDS: SENNOSIDES/DOCUSATE 8.6-50 MG 1 EACH TABLET PO SCH (11:00)
[2018-04-03] MEDS: PRENATAL VITAMIN W DHA CAPSULE PO SCH (11:00)
--- NOTE | 2018-04-03 12:37 | PDOC TRANSFER SUMMARY ---
General - Admit/Disc Date/PCP Admission Date/Primary Care Provider: 03/28/18 21:51 GITA BHATT MD Discharge Date: 04/03/18 - Discharge Diagnosis (1) Femoral distal fracture Is this a current diagnosis for this admission?: Yes - Additional Information Resuscitation Status: Full Code Home Medications: Rosuvastatin Calcium [Crestor 10 mg Tablet] 10 mg PO QPM 12/30/14 Cetirizine HCl [Zyrtec 10 mg Tablet] 10 mg PO DAILYP PRN 03/29/18 Ergocalciferol (Vitamin D2) [Vitamin D2] 50,000 unit PO Q14D 03/29/18 Levothyroxine Sodium [Synthroid 0.075 mg Tablet] 0.075 mg PO QAM 03/29/18 History of Present Illness Admission Date/PCP: 03/28/18 21:51 GITA BHATT MD Patient complains of: Right lower extremity pain status post fall with fracture of the femur History of Present Illness: 72-year-old female who has suffered a mechanical fall and fractured her right distal third femur on March 28, 2018. Patient was brought to EMS and x-rays confirming the fracture. Patient was admitted overnight and on March 29 underwent retrograde nailing of her right femoral shaft fracture. Surgery went uneventful. Patient worked with physical therapy and has an uneventful hospital stay. She will be discharged today 04/03/2018 to [facility] for further rehabilitation. She will follow-up with me in the 1 week for wound check. Hospital Course Hospital Course: Patient was admitted March 28 with diagnosis of displaced distal third right femoral shaft fracture. Patient was admitted overnight and on March 29 underwent retrograde nailing of her right femoral shaft fracture. Surgery went uneventful. Patient worked with physical therapy and has an uneventful hospital stay. Vital signs have been stable and her H&H have been stable during her hospital stay. Pain has been controlled with the Percocet and has been on Xarelto for DVT prophylaxis without issues. She will be discharged today 04/03/2018 to [facility] facility for further rehabilitation. She will follow-up with me in the 1 week for wound check. Physical Exam Vital Signs: Temp Pulse Resp BP Pulse Ox 36.9 C 74 15 117/50 L 95 04/02/18 22:59 04/02/18 22:59 04/02/18 22:59 04/02/18 22:59 04/02/18 22:59 Intake & Output 04/02/18 04/03/18 04/04/18 06:59 06:59 06:59 Intake Total 701 660 Output Total 1100 400 Balance -399 260 Weight 70 kg 69.8 kg General appearance: PRESENT: no acute distress Head exam: PRESENT: atraumatic Eye exam: PRESENT: EOMI. ABSENT: nystagmus Cardiovascular exam: PRESENT: RRR Pulses: PRESENT: normal dorsalis pedis pul GI/Abdominal exam: PRESENT: soft. ABSENT: distended, tenderness Neurological exam: PRESENT: alert, awake, oriented to person, oriented to place , oriented to time, oriented to situation Psychiatric exam: PRESENT: appropriate affect, normal mood Skin exam: PRESENT: other - Incisions is dry clean and intact Adult Front & Back Image: 1 - No evidence of infection with no drainage or erythema. Incisions are healing nicely. Decreased range of motion of the hip and knee second to pain. Has good sensation to light touch distally with good 5 out of 5 motor distally as well. Good capillary refill Results Laboratory Results: 04/01/18 05:17 03/30/18 03:56 Impressions: Hip/Pelvis X-Ray 03/28/18 19:41 IMPRESSION: NEGATIVE STUDY OF THE RIGHT HIP. NO RADIOGRAPHIC EVIDENCE OF ACUTE INJURY. Knee X-Ray 03/28/18 19:41 IMPRESSION: Comminuted fracture of the distal femur. Chest X-Ray 03/28/18 21:04 IMPRESSION: NO ACUTE RADIOGRAPHIC FINDING IN THE CHEST. Femur X-Ray 03/29/18 00:00 IMPRESSION: ORIF right femoral fracture. Refer to operative note for further information. Fluoroscopy 03/29/18 00:00 IMPRESSION: ORIF right femoral fracture. Refer to operative note for further information. Status: Image reviewed by me Transfer Plan - Disposition Transfer Plan: Patient will be transferred to [facility] facility for rehabilitation Patient will be toe-touch weightbearing of right lower extremity. Continue Percocet for pain control Continue Xarelto for DVT prophylaxis Follow-up in 7-10 days for wound check Qualifiers - * PATIENT BEING DISCHARGED WITH ANY OF THE FOLLOWING DIAGNOSIS: No Plan Discharge Plan: Dressing was changed. Okay to shower and do daily dressing changes. Toe-touch weight-bear of the right lower extremity with full range of motion as tolerated of her hip and knee. Xarelto for DVT prophylaxis and Percocet for pain control. Follow-up in 7-10 days for wound check.
[2018-04-03 14:22] VITALS: BP 123/58
[2018-04-05] MEDS ORDERED: ERGOCALCIFEROL (VITAMIN D2) 50000 UNIT (1.25 MG) CAPSULE PO SCH (10:00)
== END 2018-04-03 16:10 | disposition short-term general hospital (02) | DRG 482 ==
LOC: ER 19:27 → EH 21:51 → 4N 23:55
PROVIDERS: ADMIT Orthopaedic Surgery; ATTEND Orthopaedic Surgery
PROC: 0QSB06Z Reposition Right Lower Femur with Intramedullary Internal Fixation Device, Open Approach (ICD-10-PCS; principal; 2018-03-29 16:30)
DX: S72.401A Unspecified fracture of lower end of right femur, initial encounter for closed fracture (principal); W03.XXXA Other fall on same level due to collision with another person, initial encounter; Y92.019 Unspecified place in single-family (private) house as the place of occurrence of the external cause; M13.842 Other specified arthritis, left hand; M13.841 Other specified arthritis, right hand; D64.9 Anemia, unspecified; K21.9 Gastro-esophageal reflux disease without esophagitis; E03.9 Hypothyroidism, unspecified
CPT/HCPCS: 01360; 36415; 51702; 71045; 80048; 80053; 81001; 85025; 85027; 85610; 93005; 93010; 96374; 96375; 99285; C1713; G8978-GP; G8979-GP; G8987-GO; G8988-GO; J0131; J0690; J1170; J2250; J2405; J2704; J2765; J3010; J3490; J7030; L1830

== ENCOUNTER 2019-03-07 07:00 | Day surgery (SDC) | payer MEDICARE, BC ==
[2019-02-28 10:23] LABS: HEMOGLOBIN 12.1 g/dL (12.0-15.5); MEAN CORPUSCULAR HEMOGLOBIN 29.7 pg (27.0-33.4); MEAN CORPUSCULAR HGB CONC 33.7 g/dL (32.0-36.0); MEAN CORPUSCULAR VOLUME 88 fl (80-97); PLATELET COUNT 177 10^3/uL (150-450); RED BLOOD COUNT 4.08 10^6/uL (3.72-5.28); RED CELL DISTRIBUTION WIDTH 13.1 % (11.5-14.0); WHITE BLOOD COUNT 4.5 10^3/uL (4.0-10.5)
[2019-02-28 10:50] LABS: ANION GAP 11 (5-19); BLOOD UREA NITROGEN 15 mg/dL (7-20); CALCIUM 9.7 mg/dL (8.4-10.2); CARBON DIOXIDE 29 mmol/L (22-30); CHLORIDE 101 mmol/L (98-107); GLUCOSE 83 mg/dL (75-110); POTASSIUM 4.2 mmol/L (3.6-5.0); SODIUM 141.1 mmol/L (137-145)
--- NOTE | 2019-02-28 23:08 | EKG REPORT ---
SEVERITY:- NORMAL ECG - SINUS RHYTHM : Confirmed by: Gregory Rahman 28-Feb-2019 23:07:43
[~2019-03-07 07:00] MED LIST: CEFAZOLIN 1 GM/D5W RTU 1 GM/50 ML RTUPB IV ONE; CEFAZOLIN 1 GM/D5W RTU 1 GM/50 ML RTUPB IV PRN; LACTATED RINGERS 1000 ML IV PRN; LIDOCAINE 0.5% INJ-PF (5 MG/ML) 50 ML SDV SUBCUT PRN; LIDOCAINE 4% TRANSPARENT DRESSING 5 GM KIT ONE; LIDOCAINE 4% TRANSPARENT DRESSING 5 GM KIT TP PRN
[2019-03-07] MEDS ORDERED: MIDAZOLAM 2 MG/2 ML INJ ONE (09:21)
[2019-03-07] MEDS ORDERED: ACETAMINOPHEN 1,000 MG/100 ML RTUPB IV ONE (09:21)
[2019-03-07] MEDS ORDERED: HYDROMORPHONE HCL INJ/PF 2 MG/ML AMPULE ONE (09:21)
[2019-03-07] MEDS ORDERED: PROPOFOL INJ 200 MG/20 ML VIAL IV ONE (09:21)
[2019-03-07] MEDS ORDERED: METHYLENE BLUE 50 MG/10 ML AMPULE ONE ×2 (10:55→11:08)
[2019-03-07] MEDS ORDERED: MICROFIBRILLAR COLLAGEN 1 GM PACK ONE ×2 (10:55→11:08)
[2019-03-07] MEDS ORDERED: LIDOCAINE 1%/EPINEPHRINE INJ 20 ML VIAL ONE ×2 (10:56→11:09)
--- NOTE | 2019-03-07 11:11 | RADIOLOGY REPORT (SQ) ---
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 RADIONUCLIDE AND DOSE: 573 microcuries TC-99m tilmanocept - Lymphoseek. The route of agent administration: Subcutaneous in the skin. TECHNIQUE: The skin of the right breast was prepped in sterile fashion. The radiopharmaceutical was administered in equally divided doses in the periareolar breast, upper quadrant. LIMITATIONS: None. FINDINGS: Images demonstrate activity at the injection site and at axillary lymph nodes. IMPRESSION: ADMINISTRATION OF RADIOPHARMACEUTICAL FOR SENTINEL LYMPH NODE EVALUATION. TECHNICAL DOCUMENTATION: JOB ID: [id number] [email or web address]- All Rights Reserved Reading location - IP/workstation name: [email or web address]
[2019-03-07] MEDS ORDERED: PROMETHAZINE HCL INJ 25 MG/1 ML VIAL ONE (11:15)
[2019-03-07] MEDS ORDERED: MEPERIDINE HCL/PF INJ 25 MG/1 ML DISP.SYRIN IV PRN (11:49)
[2019-03-07] MEDS ORDERED: MORPHINE SULFATE 10 MG/ML INJ IV PRN (11:49)
[2019-03-07] MEDS ORDERED: FENTANYL CITRATE INJ/PF 100 MCG/2 ML AMPUL IV PRN ×3 (11:49)
[2019-03-07] MEDS ORDERED: DIPHENHYDRAMINE HCL 50 MG/ML VIAL IV PRN (11:49)
[2019-03-07] MEDS ORDERED: OXYCODONE-ACETAMINOPHEN 5-325 MG TABLET PO PRN (13:40)
--- NOTE | 2019-03-07 13:40 | Discharge Summary ---
Discharge Summary (SDC) - Discharge Final Diagnosis: Right breast cancer Date of Surgery: 03/07/19 Discharge Date: 03/07/19 Condition: Good Treatment or Instructions: [facility] [address], [place] [address] Care Instructions Following Your Mastectomy Activities: Resume normal activities when you feel comfortable. It is best to remain as active as possible to speed your recovery. It is common to experience some fatigue after surgery and you may find that short naps are helpful. Avoid strenuous activity such as weight lifting, tennis, etc at your surgical site for two weeks. Perform gentle arm exercises daily and do not favor your operative arm to due increased risk of mobility issues postoperatively. No driving for 7 days after surgery. Do not drive if you are taking pain medication other than Tylenol or Ibuprofen. No swimming, tub baths or soaking in a hot tub for 4 weeks. There are no dietary restrictions. Do not smoke as this impairs wound healing. Surgical Site care: You may shower in 24 hours to include washing the wound with soap and water using your hands. Do not scrub the incision. Pat the area dry with a towel. You do not need to recover the wound although some patients find that they feel more comfortable using a light dressing for a few days to absorb any minimal drainage which may occur. Leave your skin glue intact and it will fall off on its own. Do not use heating pad or apply an ice pack to the operative site. You may apply deodorant if you are careful to avoid getting it on the wound itself. Medications: You may take Toradol, one pill by mouth every six hours as needed for pain. Do not take any additional NSAIDs such as Ibuprofen, Aleve, ect with the Toradol. Resume all of your normal prescription medications after your surgery unless instructed otherwise. You may experience constipation after surgery while taking pain medications. If using a narcotic on a regular basis, take a stool softener such as Colace twice a day. It is helpful to stay hydrated by drinking lots of fluids. Walking is also helpful and is good exercise after surgery. If you need extra help, use Milk of Magnesia according to the directions on the package. Follow-up: Call our office at to make a follow-up appointment in 10-14 days. Your doctor will call to discuss the pathology report with you as soon as it is available. Concerns: If you had a sentinel lymph node biopsy with your mastectomy, your urine may have a greenish discoloration. This is normal and will resolve as the blue dye slowly leaves your system. Some bruising may occur and will go away over time. If you have a fever of 101.5 or greater, chills, redness at the incision site, excessive drainage from your wound or severe pain not relieved by pain medication, call your doctor. A physician is available 24 hours a day 7 days a week in addition to regular office hours. If problems arise after normal office hours please call the hospital at . Please call if you have any questions or concerns. Prescriptions: Ketorolac Tromethamine [Toradol 10 mg Tablet] 10 mg PO Q6HP PRN #20 tablet PRN Reason: Referrals: GITA WANG MD [Primary Care Provider] - Discharge Diet: As Tolerated Discharge Activity: Activity As Tolerated, Balance Activity w/Rest, No Lifting Over 10 Pounds, No Lifting/Push/Pulling, Walk Frequently Report the Following to Your Physician Immediately: Increase in Pain, Fever over 101 Degrees, Unusual Bleeding, Redness, Swelling, Warmth, Increased Soreness, Drainage-Foul Smelling
--- NOTE | 2019-03-07 13:45 | Operative Report ---
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 Right breast lumpectomy, ultrasound directed. 2. Dual mapping sentinel lymph node biopsy x2 right axilla. 3. Interpretation of intraoperative specimen radiograph SURGEON: ALEX CERDA 1ST PLASMA TABLE OPERATOR: HIMANSHU SWEET ANESTHESIA: GA TISSUE REMOVED OR ALTERED: Right breast lumpectomy with tumor and clip; axillary lymph nodes right axilla x2 COMPLICATIONS: None ESTIMATED BLOOD LOSS: 5 cc INTRAOPERATIVE FINDINGS: See below PROCEDURE: The patient was seen in the preop holding area of ambulatory surgery in the right breast was marked. She previously undergone technetium 99 lymphoscintigraphy of the right breast and axilla. This showed 2 areas of increased uptake in the axilla consistent with successful migration of radiotracer. Her graph the patient was taken to the main operating room general anesthesia was induced. The right arm was abducted, and the right breast was injected with approximately 1.5 cc of dilute methylene blue in the intradermal space, periareolar location, breast. The right breast was massaged, than the right breast and axilla were prepped and draped in sterile fashion Surgical plan surgical timeout were conducted. Using real-time ultrasonography as a guide, we localized the right breast tumor. Is approximately 1 x 1/2 cm, horizontally oriented, areole or border, 1-1/2 cm deep to the skin at the 12 o'clock position. We planned a periareolar incision and anesthetized the skin with 1% plain lidocaine. Possibly 4 cm incision was made with a knife, and a lumpectomy was now performed with blunt dissection, and electrocautery, using the variable frequency linear transducer as a guide. Ectomy specimen was mobilized out of the patient's right breast, and oriented with a long suture the lateral position and a short suture in the superior position. The specimen was then radiographed in the operating room confirmed acquisition of the tumor and the clip marker. This is confirmed by Dr. Styles, the radiologist. The specimen was then sent to pathology was inked by Dr. Quinones, and examined Patluis mccray. The specimen was affected fully, and the tumor identified. Dr. Quinones that the margins were clear. However there was a small nodule adjacent that is deep and slightly cephalad to the tumor in the lumpectomy specimen. Frozen section of it was performed in a confirmed this nodule to be a small 5 mill fibroadenoma. The remainder the operation was completed now with the sentinel lymph node biopsy. And was anesthetized in the high axilla with 1% plain lidocaine. A 4- 1/2 cm incision was made adversely to the lateral border of the pectoralis muscle. We now harvested 2 sentinel lymph nodes, both hot but neither of them below. Both were at level 1. The first sentinel lymph node had an in vivo count of 11,399 and an ex vivo count of 7322. Second lymph node was hot and not blue as well with an ex vivo count of 6763. Then a third sentinel lymph node but despite very vigorous digging in the axilla high up under the pectoralis muscle, we could not localize a third node. Of note the first and second se ntinel lymph nodes were very small and benign. At this point felt the operation was complete. Sponge and needle counts are correct. There is no mechanical bleeding. Avitene slurry was placed in the recesses of both wounds and was closed with 3-0 Vicryl Dermabond glue. Patient tolerated procedure well, extubated, and taken recovery in stable condition. The physician printing assistant, Ms. Cortes, provided assistance during this case by: Assisting, retracting tissue, instillation of local anesthesia and closure of skin incisions.
[2019-03-07] MEDS ORDERED: OXYCODONE-ACETAMINOPHEN 5-325 MG TABLET ONE (14:39)
[2019-03-07] MEDS ORDERED: SUCCINYLCHOLINE CHLORIDE INJ 200 MG/10 ML VIAL ONE (14:52)
[2019-03-07] MEDS ORDERED: ONDANSETRON HCL INJ/PF 4 MG/2 ML SDV ONE (14:52)
[2019-03-07] MEDS ORDERED: DEXAMETHASONE SOD PHOSPHATE INJ 4 MG/1 ML VIAL ONE (14:52)
[2019-03-07 16:50] VITALS: BP 129/78
--- NOTE | 2019-03-07 16:55 | RADIOLOGY REPORT (SQ) ---
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 LIMITATIONS: None. FINDINGS: Specimen radiograph from breast procedure performed in the operating room. Biopsy clip i s contained within the specimen. Report called to the operating surgeon in the OR 1300 hours 9 Please see procedure note for details and final pathology. IMPRESSION: Specimen radiograph. TECHNICAL DOCUMENTATION: JOB ID: [id number] Reading location - IP/workstation name: [email or web address]
== END 2019-03-07 16:30 | disposition home or self-care (01) ==
LOC: OROUT 07:00
PROVIDERS: ATTEND Surgery
DX: N63.10 Unspecified lump in the right breast, unspecified quadrant (principal); Z80.3 Family history of malignant neoplasm of breast; E03.9 Hypothyroidism, unspecified; E55.9 Vitamin D deficiency, unspecified; Z79.899 Other long term (current) drug therapy; E78.00 Pure hypercholesterolemia, unspecified; C50.811 Malignant neoplasm of overlapping sites of right female breast
CPT/HCPCS: 93005; 36415; 85027; 80048; 88305 ×2; 88307 ×2; 88331 ×2; 78195; 93010; 76098; 19301; 38500; A9520; J2250; J0690; J1100; J3490 ×3; A9270; J1170; J2550; J0330; J2405; J2704; J0131; Q9968; 1610

== ENCOUNTER → 2019-05-28 | Outpatient (CLI) | payer MEDICARE, BC ==
--- NOTE | 2019-05-28 15:02 | WOMENS IMAGING REPORT ---
EXAM DESCRIPTION: BONE DENSITY HIP/SPINE COMPLETED DATE/TIME: 05/28/2019 1:29 pm REASON FOR STUDY: M81.0 AGE-RELATED OSTEOPOROSIS WITHOUT CURRENT PATHOLOGICAL FRACTURE M81.0 AGE-RE LATED OSTEOPOROSIS W/O CURRENT PATHOLOGICAL FRAC COMPARISON: 01/31/2013. TECHNIQUE: Dual-Energy X-ray Absorptiometry (DEXA) of the AP Spine and Hip. LIMITATIONS: None. FINDINGS: LUMBAR SPINE: The bone mineral density (BMD) measured from L1-L4 in the AP projection correlates with a T-score of -2.9, which is osteoporosis as defined by the World Health Organization. BMD Change vs Baseline: -10.2%. HIP: The bone mineral density (BMD) measured in the left hip correlates with a T-score of -2.6, which is o steoporosis as defined by the World Health Organization. BMD Change vs Baseline: -1.2%. 10 year Fracture Risk Assessment: Major Osteoporotic Fracture: Not available. Hip Fracture: Not available. IMPRESSION: 1. LUMBAR SPINE WHO CLASSIFICATION: OSTEOPOROSIS. 2. HIP WHO CLASSIFICATION: OSTEOPOROSIS. OVERALL ASSESSMENT: WHO CLASSIFICATION: OSTEOPOROSIS. COMMENT: The World Health Organization defines low BMD as follows: T-score: Normal: Greater than -1.0 Osteopenia: Between -1.0 and -2.5 Osteoporosis: Less than -2.5 without fractures Established osteoporosis: Less than -2.5 with fractures In general, you may wish to consider: Diagnosis Treatment Follow-up DEXA Normal BMD Prevention 2-3 years Osteopenia Prevention/Therapy 1-2 years Osteoporosis Therapy Yearly TECHNICAL DOCUMENTATION: JOB ID: [id number] [email or web address]- All Rights Reserved Reading location - IP/workstation name: [email or web address]
== END ==
LOC: WI 13:06
PROVIDERS: ATTEND Internal Medicine Hematology & Oncology
DX: M81.0 Age-related osteoporosis without current pathological fracture (principal)
CPT/HCPCS: 77080

== ENCOUNTER 2020-08-28 06:40 | Day surgery (SDC) | payer MEDICARE, BC ==
[2020-08-25 11:34] LABS: HEMATOCRIT 39.4 % (36.0-47.0); HEMOGLOBIN 13.4 g/dL (12.0-15.5); MEAN CORPUSCULAR HEMOGLOBIN 30.3 pg (27.0-33.4); MEAN CORPUSCULAR HGB CONC 34.1 g/dL (32.0-36.0); MEAN CORPUSCULAR VOLUME 89 fl (80-97); PLATELET COUNT 164 10^3/uL (150-450); RED BLOOD COUNT 4.44 10^6/uL (3.72-5.28); RED CELL DISTRIBUTION WIDTH 13.3 % (11.5-14.0); WHITE BLOOD COUNT 4.5 10^3/uL (4.0-10.5)
[2020-08-28] MEDS ORDERED: LIDOCAINE 2% INJ (20 MG/ML) 20 ML MDV ONE (07:24)
[2020-08-28] MEDS ORDERED: PROPOFOL INJ 200 MG/20 ML VIAL IV ONE (07:24)
[2020-08-28 08:58] VITALS: BP 136/54
--- NOTE | 2020-08-28 09:00 | Discharge Summary ---
Discharge Summary (SDC) - Discharge Final Diagnosis: 1. Sigmoid diverticulosis 2. Left colon polyp 3. External hemorrhoids. Date of Surgery: 08/28/20 Discharge Date: 08/28/20 Condition: Good Forms: EU Anesthesia D/C Instructions, Discharge POC-Surgical Service Treatment or Instructions: NO DRIVING TODAY ADVANCE YOUR DIET TOLERATED PLEASE CALL DR. CERDA OFFICE TO SCHEDULE TWO WEEK FOLLOW-UP APPOINTMENT Referrals: ALEX CERDA MD [ACTIVE STAFF] - Discharge Diet: As Tolerated Respiratory Treatments at Home: Deep Breathing/Coughing Discharge Activity: Activity As Tolerated, No Driving Home Care Assistance: None Needed Report the Following to Your Physician Immediately: Shortness of Breath, Nausea, Vomiting, Increase in Pain, Fever over 101 Degrees, Unusual Bleeding, IV Site Infection Signs
--- NOTE | 2020-08-28 09:03 | Operative Report ---
Operative Report DATE OF SURGERY: 08/28/20 PREOPERATIVE DIAGNOSIS: 1. Screening for colorectal carcinoma. 2. Personal h istory of breast cancer POSTOPERATIVE DIAGNOSIS: Same with. 1. Sigmoid colon diverticulosis. 2. Left colon polyp. 3. External hemorrhoids OPERATION: Total colonoscopy to cecum, photodocumentation, and hot polypectomy of left colon polyp SURGEON: ALEX CERDA ANESTHESIA: LMAC TISSUE REMOVED OR ALTERED: 1 polyp left colon COMPLICATIONS: None ESTIMATED BLOOD LOSS: Scant INTRAOPERATIVE FINDINGS: See below PROCEDURE: Obtaining informed consent the patient was taken from the preoperative holding area to the main endoscopy suite where monitoring devices were attached to the patient. Plan and surgical timeout were conducted The patient was placed in the left lateral decubitus position with knees to chest. A perianal examination was performed. There was no visible or palpable anorectal pathology. Sphincter tone was felt to be normal. The flexible adult colonoscope was advanced through the anal rectal canal, all the way to the cecum. Visualization of the cecum was achieved by demonstration of the ileocecal valve, the appendiceal orifice and transillumination of the anterior abdominal wall. This was an excellent study on the well-prepped bowel. The colonoscope was withdrawn slowly and methodically checked and the mucosa carefully. There was no evidence of tumor, stricture, bleeding. In the left colon approximately 70 cm in the anal verge was a pedunculated polyp.using the hot snare, the polyp was removed, and retrieved and sent to pathology as same. Polypectomy site showed no evidence of bleeding. Photo taken There were scattered diverticulosis of the sigmoid colon; The scope was slowly withdrawn through the anal rectal canal. Complete visualization of the rectum was achieved with photodocumentation. The scope was withdrawn to the patient's anus. External hemorrhoids noted. The patient tolerated the procedure well and was taken to the recovery area in stable condition. Per surveillance guidelines, patient will be an appropriate candidate for follow-up colonoscopy in [3] years pending final path report.
== END 2020-08-28 09:40 | disposition home or self-care (01) ==
LOC: END 06:40
PROVIDERS: ATTEND Surgery
DX: Z12.11 Encounter for screening for malignant neoplasm of colon (principal); K57.30 Diverticulosis of large intestine without perforation or abscess without bleeding; D12.4 Benign neoplasm of descending colon; K64.4 Residual hemorrhoidal skin tags; Z86.010 Personal history of colon polyps; E55.9 Vitamin D deficiency, unspecified; E78.00 Pure hypercholesterolemia, unspecified; E03.9 Hypothyroidism, unspecified; Z85.3 Personal history of malignant neoplasm of breast; Z79.899 Other long term (current) drug therapy; Z03.818 Encounter for observation for suspected exposure to other biological agents ruled out
CPT/HCPCS: 45385; 36415; 85027; 88305 ×2; U0003; J3490; J2704; C9803; 812; 87635

== ENCOUNTER 2020-11-11 06:22 | Day surgery (SDC) | payer MEDICARE, BC ==
[~2020-11-11 06:22] MED LIST changes: +BUPIVACAINE HCL 0.75% INJ/PF (7.5 MG/1 ML) 10 ML SDV OD PRN; -CEFAZOLIN 1 GM/D5W RTU 1 GM/50 ML RTUPB IV ONE; -CEFAZOLIN 1 GM/D5W RTU 1 GM/50 ML RTUPB IV PRN; +KETOROLAC TROMETHAMINE 0.45% 4 DROP/0.4 ML DROPERETTE OD PRN; -LACTATED RINGERS 1000 ML IV PRN; -LIDOCAINE 0.5% INJ-PF (5 MG/ML) 50 ML SDV SUBCUT PRN; +LIDOCAINE 4% INJ/PF (40 MG/ML) 5 ML AMPUL OD PRN; -LIDOCAINE 4% TRANSPARENT DRESSING 5 GM KIT ONE; -LIDOCAINE 4% TRANSPARENT DRESSING 5 GM KIT TP PRN
[2020-11-11] MEDS: TETRACAINE HCL 0.5% OPH SOLN 4 ML OD PRN ×2 (06:46→07:00)
[2020-11-11] MEDS: TROPICAMIDE 1% OPH SOLN 15 ML OD PRN ×3 (06:46→07:00)
[2020-11-11] MEDS: CYCLOPENTOLATE 0.2%/PHENYLEPHRINE 1% OPH SOLN 2 ML OD PRN ×3 (06:46→07:00)
[2020-11-11] MEDS: BESIFLOXACIN HCL 0.6% OPH SUSP 5 ML BOTTLE OD PRN ×4 (06:47→07:57)
[2020-11-11] MEDS ORDERED: EPINEPHRINE INJ/PF 1 MG/1 ML AMPULE ONE (06:52)
[2020-11-11] MEDS ORDERED: CHONDR SU A NA/HYALUR INTRAOC KIT (SURGICARE) ONE (06:53)
[2020-11-11] MEDS ORDERED: LIDOCAINE 1%/PHENYLEPHRINE 1.5% 1 ML VIAL ONE (06:53)
[2020-11-11] MEDS ORDERED: MIDAZOLAM 2 MG/2 ML INJ ONE (06:58)
[2020-11-11] MEDS ORDERED: ONDANSETRON HCL INJ/PF 4 MG/2 ML SDV ONE (06:58)
[2020-11-11] MEDS ORDERED: FENTANYL CITRATE INJ/PF 100 MCG/2 ML AMPUL ONE (06:58)
[2020-11-11] MEDS: DORZOLAMIDE HCL 2%/TIMOLOL MALEAT 0.5% OPH SOLN 10 ML OD PRN ×2 (07:57)
[2020-11-11] MEDS: PREDNISOLONE ACETATE 1% OPH SUSP 5 ML OD PRN ×2 (07:57)
--- NOTE | 2020-11-11 15:44 | Operative Report ---
Operative Report-[facility] Operative Report: DATE OF SURGERY: 11/11/2020 PREOPERATIVE DIAGNOSIS: CATARACT, RIGHT EYE. POSTOPERATIVE DIAGNOSIS: CATARACT, RIGHT EYE. PROCEDURE PERFORMED: PHACOEMULSIFICATION WITH POSTERIOR CHAMBER INTRAOCULAR LENS, RIGHT EYE. Intraocular Lens Model : DCBOO 24.5 Total Phaco Time: 9.37 CDE SURGEON: MABEL PETERS MD ANESTHESIA: TOPICAL WITH MAC. INDICATIONS FOR SURGERY: Difficulty reading road signs and words on TV. PROCEDURE: The patient was brought to the Operating Room and placed on the operative table. Following tetracaine drops, topical anesthesia was administered. This consisted of instrument wipe pledgets soaked in a solution of 4% Xylocaine mixed with 0.75% Marcaine in a 1:2 ratio. A 2 x 1 cm pledget was placed in the superior fornix. A 1 x 1 cm pledget was placed in the inferior fornix. The eye was patched shut for 5 minutes. The patch was removed. The eye was sterilely prepped and draped in the usual manner. Lid speculum was placed in the eye. The pledgets were removed. 4-0 black silk sutures were placed around the superior and the inferior rectus muscles to be used as traction. A conjunctival peritomy was made at the 10 o'clock position. Hemostasis was obtained with bipolar cautery. A posterior limbal groove was created using a crescent knife and dissected anteriorly towards the cornea. A sharp point blade was used to create a paracentesis site at the 2 o'clock position. 0.2 cc non preserved Lidocaine was injected into the anterior chamber. A 2.4 mm keratome was used to enter the anterior chamber through the groove. Viscoelastic was injected into the anterior chamber. An anterior capsulotomy was performed using Utrata forceps in a capsulorrhexis fashion. Hydrodissection and hydrodelineation were performed. Phacoemulsification was performed in [id number] technique. Following this, the I/A unit was used to remove residual cortex. Viscoelastic was injected into the capsular bag. The Intraocular lens was placed in the capsular bag. The I/A unit was used to remove residual viscoelastic. The wound was seen to be watertight under high and low pressure, and no sutures were placed. The intraocular lens was well centered. The pressure was adjusted in the eye to normal pressure. The 4-0 black silk sutures and lid speculum were removed. The eye was shielded after Besivance. prednisolone, and Cosopt drops were placed. The patient tolerated the procedure well and was sent to the Recovery Room in good condition.
== END 2020-11-11 08:37 | disposition home or self-care (01) ==
LOC: SC 06:22
PROVIDERS: ATTEND Ophthalmology
DX: H25.811 Combined forms of age-related cataract, right eye (principal); H40.013 Open angle with borderline findings, low risk, bilateral; H43.813 Vitreous degeneration, bilateral; H04.123 Dry eye syndrome of bilateral lacrimal glands; H57.03 Miosis; E78.00 Pure hypercholesterolemia, unspecified; E03.9 Hypothyroidism, unspecified; K21.9 Gastro-esophageal reflux disease without esophagitis; F41.9 Anxiety disorder, unspecified
CPT/HCPCS: 66984; V2632; J2250; J3490 ×4; A9270; J0171; J2405; J3010